=== PATIENT | female | born 1980 | race Caucasian/White ===

== ENCOUNTER 2018-12-13 18:42 | Emergency (ER) | payer OTHER ==
[~2018-12-13] VITALS: Ht 162.6 cm; Wt 68.9 kg
[2018-12-13 18:50] VITALS: Ht 162.6 cm; Wt 68.9 kg
[2018-12-13 23:24] VITALS: BP 114/62; PULSE 69; RESP 16
== END 2018-12-13 23:24 | disposition home or self-care (01) ==
LOC: FTE 18:42
DX: O20.9 Hemorrhage in early pregnancy, unspecified (principal); R10.2 Pelvic and perineal pain; Z3A.01 Less than 8 weeks gestation of pregnancy
CPT/HCPCS: 36415; 76801; 76817; 81001; 84702; 85025; 86900; 86901; Z7502